=== PATIENT | female | born 1985 | race Caucasian/White ===

== ENCOUNTER → 2017-07-10 | Outpatient (CLI) | payer BC, OTHER ==
[~2017-07-10] VITALS: Ht 167.6 cm; Wt 87.0 kg
[~2017-07-10] MED LIST: PRENATAL TABLE1 EAC3 PO
[2017-07-10 11:33] VITALS: BP 108/64
== END | disposition home or self-care (01) ==
LOC: IVINF 11:00
DX: Z34.83 Encounter for supervision of other normal pregnancy, third trimester (principal); Z3A.28 28 weeks gestation of pregnancy; Z67.31 Type AB blood, Rh negative
CPT/HCPCS: 96372; J2790

== ENCOUNTER 2017-09-03 19:12 | Inpatient (IN) | payer BC, OTHER ==
[~2017-09-03] VITALS: Ht 167.6 cm; Wt 94.8 kg
[2017-09-03 19:30] VITALS: BP 125/75
[2017-09-03 19:40] VITALS: BP 131/82
[2017-09-03 20:26] LABS: BASOPHIL (%) 0.3 % (0-1); EOSINOPHIL (%) 0 % (0-5); HEMATOCRIT 34.2 % (36.0-46.0); HEMOGLOBIN 11.2 G/DL (11.9-15.5); IMMATURE GRANULOCYTE (%) 1.9 % (0.0-0.7); LYMPHOCYTE COUNT 0.8 K/uL (1.0-2.8); MCH 26.4 PG (29.0-34.0); MCHC 32.7 G/DL (30.0-36.0); MCV 80.7 FL (83-99); MONOCYTE (%) 9.9 % (3-12); MONOCYTE COUNT 0.9 K/uL (0-0.8); NEUTROPHIL (%) 79.9 % (45-76); NEUTROPHIL COUNT 7.5 K/uL (1.8-6.4); PLATELET COUNT 150 K/uL (156-360); RBC DIS.WIDTH-CV 13.4 % (11.8-14.6); RBC DIS.WIDTH-SD 38.9 % (39-53); RED BLOOD COUNT 4.24 M/uL (3.80-5.20); WHITE BLOOD COUNT 9.4 K/uL (4.1-10.2)
[2017-09-03 20:57] LABS: AMPHETAMINE NEGATIVE (500 ng/mL); BARBITURATES NEGATIVE (200 ng/mL); BENZODIAZEPINES NEGATIVE (150 ng/mL); BUPRENORPHINE NEGATIVE (10 ng/mL); COCAINE NEGATIVE (150 ng/mL); METHADONE NEGATIVE (200 ng/mL); METHAMPHETAMINE NEGATIVE (500 ng/mL); OPIATES (MORPHINE) NEGATIVE (100 ng/mL); OXYCODONE NEGATIVE (100 ng/mL); PHENCYCLIDINE NEGATIVE (25 ng/mL); PROPOXYPHENE NEGATIVE (300 ng/mL); THC CANNABINOIDS NEGATIVE (50 ng/mL); TRICYCLIC ANTIDEPRESSANTS NEGATIVE (300 ng/mL)
[2017-09-03 21:24] VITALS: BP 128/76
[2017-09-03] MEDS ORDERED: DOCUSATE SODIU100 MG PO (22:47)
[2017-09-03] MEDS ORDERED: IBUPROFEN800 MG PO (22:47)
[2017-09-03] MEDS ORDERED: ENDOCET 5-3251 EACH PO (22:47)
[2017-09-04] VITALS (12 sets, daily range): BP systolic 100–121; BP diastolic 55–75
[2017-09-04 09:00] LABS: BASOPHIL (%) 0.2 % (0-1); EOSINOPHIL (%) 0 % (0-5); HEMOGLOBIN 10.1 G/DL (11.9-15.5); LYMPHOCYTE (%) 8.9 % (15-42); LYMPHOCYTE COUNT 0.8 K/uL (1.0-2.8); MCH 26.2 PG (29.0-34.0); MCHC 31.6 G/DL (30.0-36.0); MCV 82.9 FL (83-99); MONOCYTE (%) 7.8 % (3-12); MONOCYTE COUNT 0.7 K/uL (0-0.8); NEUTROPHIL (%) 82.1 % (45-76); NEUTROPHIL COUNT 7.3 K/uL (1.8-6.4); PLATELET COUNT 144 K/uL (156-360); RBC DIS.WIDTH-CV 13.7 % (11.8-14.6); RBC DIS.WIDTH-SD 40.8 % (39-53); RED BLOOD COUNT 3.86 M/uL (3.80-5.20); WHITE BLOOD COUNT 8.9 K/uL (4.1-10.2)
[2017-09-05 03:06] VITALS: BP 120/77
[2017-09-05 08:22] VITALS: BP 123/71
[2017-09-05 10:42] VITALS: BP 124/74
[2017-09-05 16:46] VITALS: BP 129/76
== END 2017-09-05 17:45 | disposition home or self-care (01) | DRG 766 ==
LOC: LDRP-OP 19:12 → 2WEST 19:14 → LDRP-OP 10-07 17:24
PROVIDERS: Obstetrics & Gynecology
PROC: 10D00Z1 Extraction of Products of Conception, Low, Open Approach (ICD-10-PCS; principal; 2017-09-03)
DX: O34.211 Maternal care for low transverse scar from previous cesarean delivery (principal); O99.214 Obesity complicating childbirth; N85.8 Other specified noninflammatory disorders of uterus; Z3A.39 39 weeks gestation of pregnancy; Z37.0 Single live birth; Z87.440 Personal history of urinary (tract) infections
CPT/HCPCS: 85025; 86850; 86870; 86900; 86901; 86905; 86920; J0690; J1200; J2274; J7120